=== PATIENT | male | born 1945 | race Caucasian/White ===

== ENCOUNTER 2016-06-22 16:09 | Emergency (ER) | payer MEDICARE ==
--- NOTE | 2016-06-22 16:34 | ERPHSYRPT ---
- History of Present Illness Time Seen by Provider: 06/22/16 16:29 Source: patient Exam Limitations: no limitations Patient Subjective Stated Complaint: pt states he has pain to left ribs from coughing. states he was seen at [facility] [place] on 06/21/16 and placed on a z-pack, prednisone and inhaler for bronchitis. Triage Nursing Assessment: pt pink, warm, dry. lung sounds clear and equal. no deformities noted to ribs. Physician History: Pt. with dry hacky cough most of time for past 7 days, intermittently bringing up some yellow sputum at times. States increase cough so much that he started having L chest wall pain. L chest pain sharp and worse with inspiration/cough. Seen at [place] and was given Zithromax, Prednisone and inhaler. Took [place] at noon with minimal relief. No CP otherwise, but noted some SOB sore throat and nasal congestion. No dizziness, weakness, fever, chills or systemic symptoms. Timing/Duration: day(s) (7), intermittent Cough Quality/Degree: dry cough Possible Cause: no prior episodes Modifying Factors: Improves With: albuterol inhaler (improves), deep breath ( worsens), exertion (worsens) Associated Symptoms: chest pain/soreness, cough, nasal congestion, nasal drainage, sore throat, No fever, No chills, No dizziness, No headache, No lightheadedness International travel in last 2 weeks: No Allergies/Adverse Reactions: adhesive tape Adverse Reaction (Mild, Verified 06/22/16 16:19) Blisters Home Medications: Aspirin 81 gm Chew [Baby Aspirin 81 mg Chew] 81 mg PO DAILY 11/09/14 [ History] Multivitamin [Multivitamins] 1 each PO DAILY 11/09/14 [History] Albuterol 8 gm Mdi Hfa [Ventolin Hfa MDI] 8 gm IH Q4HPRN PRN 06/22/16 [ History] Azithromycin [Zithromax] 250 mg PO UD 06/22/16 [History] Lisinopril 20 mg [Zestril 20 MG] 20 mg PO DAILY 06/22/16 [History] Methylprednisolone 4 mg [Medrol 4 mg] 4 mg PO UD 06/22/16 [History] Metoprolol Tartrate 25 mg [Lopressor 25MG Tab] 25 mg PO DAILY 06/22/16 [ History] Hx Tetanus, Diphtheria Vaccination/Date Given: Yes (up to date) Hx Influenza Vaccination/Date Given: Yes Hx Pneumococcal Vaccination/Date Given: Yes Immunizations Up to Date: Yes - Review of Systems Constitutional: No Fever, No Chills Eyes: No Symptoms Ears, Nose, & Throat: Nose Congestion, Nose Discharge, Throat Pain Respiratory: Cough, No Dyspnea, No Wheezing Cardiac: No Chest Pain, No Edema, No Syncope Abdominal/Gastrointestinal: No Abdominal Pain, No Nausea, No Vomiting, No Diarrhea Genitourinary Symptoms: No Dysuria Musculoskeletal: No Symptoms, No Back Pain, No Neck Pain Skin: No Rash Neurological: No Symptoms, No Dizziness, No Focal Weakness, No Sensory Changes Psychological: No Symptoms Endocrine: No Symptoms All Other Systems: Reviewed and Negative - Past Medical History Pertinent Past Medical History: Yes Neurological History: No Pertinent History ENT History: No Pertinent History Cardiac History: Hypertension Respiratory History: Other Endocrine Medical History: No Pertinent History Musculoskeletal History: Arthritis GI Medical History: Polyps, Other History: No Pertinent History Psycho-Social History: No Pertinent History Male Reproductive Disorders: No Pertinent History Other Medical History: SOB with exertion no DX. several lipomas right arm. diarrhea - Past Surgical History Past Surgical History: Yes Neuro Surgical History: No Pertinent History Cardiac: No Pertinent History Respiratory: No Pertinent History Gastrointestinal: Hernia Repair Genitourinary: No Pertinent History Musculoskeletal: Orthopedic Surgery Male Surgical History: No Pertinent History Other Surgical History: lumpectomy - Social History Smoking Status: Former smoker How long have you smoked: 20 years Exposure to second hand smoke: No Drug Use: none Patient Lives Alone: No - Nursing Vital Signs Nursing Vital Signs: Initial Vital Signs Temperature 97.4 F Temperature Source Oral Pulse Rate 98 Respiratory Rate 18 Blood Pressure [Right Arm] 136/81 Pain Intensity 5 - Physical Exam General Appearance: no apparent distress, alert Eye Exam: PERRL/EOMI, eyes nml inspection Ears, Nose, Throat Exam: normal ENT inspection, TMs normal, pharynx normal, moist mucous membranes Neck Exam: normal inspection, non-tender, supple, full range of motion Respiratory Exam: normal breath sounds, chest tenderness (L lat chest wall), lungs clear, No respiratory distress Cardiovascular Exam: regular rate/rhythm, normal heart sounds Gastrointestinal/Abdomen Exam: soft, No tenderness Back Exam: normal inspection, No CVA tenderness, No vertebral tenderness Extremity Exam: normal inspection, normal range of motion Neurologic Exam: alert, oriented x 3, cooperative, normal mood/affect, sensation nml, No motor deficits Skin Exam: normal color, warm, dry, No rash Lymphatic Exam: No adenopathy SpO2: 96 Oxygen Delivery: Room Air - Course Nursing assessment & vital signs reviewed: Yes EKG Interpreted by Me: RATE (96), NORMAL AXIS, NORMAL INTERVALS, NORMAL QRS, NORMAL ST-T, Other (Normal EKG) - Radiology Exams Chest X-ray Interpretation: Discussed w/ radiologist, Pneumonia (LLL, no ptx or fxs per radiologist) Ordered Tests: Active Orders 24 hr Category Date Time Status EKG-ER Only STAT Care 06/22/16 16:38 Active CHEST 2 VIEWS (PA AND LAT) Stat Exams 06/22/16 16:39 Taken RIBS UNILATERAL Stat Exams 06/22/16 16:40 Taken Medication Summary Discontinued Medications Generic Name Dose Route Start Last Admin Trade Name aNtanq PRN Reason Stop Dose Admin Meperidine HCl 50 mg 06/22/16 16:40 06/22/16 17:04 Demerol 50 Mg IM 06/22/16 16:41 50 mg STAT ONE Administration Meperidine HCl Confirm 06/22/16 17:03 Demerol 50 Mg Administered 06/22/16 17:04 Dose 50 mg .ROUTE .STK-MED ONE Meperidine HCl 50 mg 06/22/16 17:42 06/22/16 17:46 Demerol 50 Mg IM 06/22/16 17:43 50 mg STAT ONE Administration Meperidine HCl Confirm 06/22/16 17:44 Demerol 50 Mg Administered 06/22/16 17:45 Dose 50 mg .ROUTE .STK-MED ONE Promethazine HCl 25 mg 06/22/16 16:38 06/22/16 17:04 Phenergan 25 Mg Inj IM 06/22/16 16:39 25 mg STAT ONE Administration Promethazine HCl Confirm 06/22/16 17:03 Phenergan 25 Mg Inj Administered 06/22/16 17:04 Dose 25 mg .ROUTE .STK-MED ONE - Progress Progress: improved Air Movement: good Progress Note: 06/22/16 16:38 Pt. given Demerol and Phenergan for pain Blood Culture(s) Obtained: No Antibiotics given: No Counseled pt/family regarding: diagnosis, rad results - Departure Time of Disposition: 17:24 Departure Disposition: Home Clinical Impression: Pneumonia, Pleurisy Condition: Stable Critical Care Time: No Referrals: SEAN FISHER [Primary Care Provider] - Instructions: Pneumonia -- Adult, Pleurisy Additional Instructions: RX: Levaquin, Tussionex Return for worse pain, short of breath, fever or any problems. Prescriptions: Levofloxacin [Levaquin] 500 mg PO DAILY #10 tablet
[2016-06-22] MEDS ORDERED: Phenergan 25 MG INJ IM ONE (16:38)
[2016-06-22] MEDS ORDERED: DEMEROL 50 MG IM ONE ×2 (16:40→17:42)
[2016-06-22] MEDS ORDERED: DEMEROL 50 MG ONE ×2 (17:03→17:44)
[2016-06-22] MEDS ORDERED: Phenergan 25 MG INJ ONE (17:03)
[2016-06-22 18:18] VITALS: BP 146/70; PULSE 88; O2SAT 95
--- NOTE | 2016-06-23 08:37 | XRAY ---
Indication: Left-sided pain. No known injury. Comparison: None 2 views of the left ribs demonstrates mild osteopenia, acromioclavicular degenerative arthropathy, left hilar calcified nodes, and left lung base infiltrate/atelectasis. No other bony, articular, or soft tissue abnormalities.
--- NOTE | 2016-06-23 08:40 | XRAY ---
Indication: Cough. Left-sided pain. Comparison: December 19, 2010. PA/lateral chest less inflated today with new left base infiltrate/atelectasis. No consolidation or large effusion. Heart is not enlarged. Stable left infrahilar calcified node. Bony thorax intact again with mild osteopenia and degenerative changes. Impression: New left base infiltrate/atelectasis. Correlate clinically.
== END 2016-06-22 18:18 | disposition home or self-care (01) ==
LOC: ED 16:09
DX: J18.9 Pneumonia, unspecified organism (principal); R09.1 Pleurisy
CPT/HCPCS: 71020; 71100; 93005; 96372; 99284; J2175; J2550

== ENCOUNTER 2018-10-05 18:12 | Emergency (ER) | payer MEDICARE, OTHER ==
[2018-10-05] MEDS ORDERED: solu-MEDROL 125 MG IV ONE (18:44)
[2018-10-05] MEDS ORDERED: Pepcid 20 MG VIAL IV ONE ×2 (18:44→19:06)
[2018-10-05] MEDS ORDERED: BENADRYL 50 MG/ML IV ONE (18:44)
[2018-10-05] MEDS ORDERED: Sodium Chloride 0.9% 1000 ML 1,000 ML IV SCH (18:45)
--- NOTE | 2018-10-05 18:46 | ERPHSYRPT ---
- History of Present Illness Time Seen by Provider: 10/05/18 18:40 Exam Limitations: no limitations Patient Subjective Stated Complaint: pt reports he noticed a rash this morning approx 0900, states he is taking amoxicillin for a dry socket and has 2.5 days left of that course. denies any new exposure except for the antibiotic. pt states just [employer] he started to feel like his throat was getting "tight". Triage Nursing Assessment: pt is aox3, pt appears in no distress, pupils perrl, afebrile, resps easy and non labored, radial pulses strong and equal, cap refill < 3 seconds, pt skin pink warm dry. diffuse red rash noted to the face, neck, and abdomen. skin is intact. Physician History: pt is 73 year old male with onset rash today and scratchy throat but swallowing OK and not short of breath. no prior rxn to PCN - tooth is doing fine per pt. urticaric maculopap rash no other new meds beside pcn ab this week. Timing/Duration: today Quality: itchy Severity: moderate Location: face, torso, extremities, generalized Possible Causes: exposure to allergen Modifying Factors: Improves With: antihistamine Associated Symptoms: hives, sore throat Allergies/Adverse Reactions: adhesive tape Adverse Reaction (Mild, Verified 10/05/18 18:37) Blisters Home Medications: Aspirin 81 gm Chew [Baby Aspirin 81 mg Chew] 81 mg PO DAILY 11/09/14 [ History] Multivitamin [Multivitamins] 1 each PO DAILY 11/09/14 [History] Albuterol 8 gm Mdi Hfa [Ventolin Hfa MDI] 8 gm IH Q4HPRN PRN 06/22/16 [ History] Azithromycin [Zithromax] 250 mg PO UD 06/22/16 [History] Lisinopril 20 mg [Zestril 20 MG] 20 mg PO DAILY 06/22/16 [History] Methylprednisolone 4 mg [Medrol 4 mg] 4 mg PO UD 06/22/16 [History] Metoprolol Tartrate 25 mg [Lopressor 25MG Tab] 25 mg PO DAILY 06/22/16 [ History] Hx Tetanus, Diphtheria Vaccination/Date Given: Yes Hx Influenza Vaccination/Date Given: Yes Hx Pneumococcal Vaccination/Date Given: Yes Immunizations Up to Date: Yes - Review of Systems Constitutional: No Fever, No Chills Eyes: No Symptoms Ears, Nose, & Throat: Other (scratchy throat) Respiratory: No Cough, No Dyspnea Cardiac: No Chest Pain, No Edema, No Syncope Abdominal/Gastrointestinal: No Abdominal Pain, No Nausea, No Vomiting, No Diarrhea Genitourinary Symptoms: No Dysuria Musculoskeletal: No Back Pain, No Neck Pain Skin: No Rash Neurological: No Dizziness, No Focal Weakness, No Sensory Changes Psychological: No Symptoms Endocrine: No Symptoms All Other Systems: Reviewed and Negative - Past Medical History Pertinent Past Medical History: Yes Neurological History: No Pertinent History ENT History: No Pertinent History Cardiac History: Hypertension Respiratory History: Other Endocrine Medical History: No Pertinent History Musculoskeletal History: Arthritis GI Medical History: Polyps, Other History: No Pertinent History Psycho-Social History: No Pertinent History Male Reproductive Disorders: No Pertinent History Other Medical History: SOB with exertion no DX. several lipomas right arm. diarrhea - Past Surgical History Past Surgical History: Yes Neuro Surgical History: No Pertinent History Cardiac: No Pertinent History Respiratory: No Pertinent History Gastrointestinal: Hernia Repair Genitourinary: No Pertinent History Musculoskeletal: Orthopedic Surgery Male Surgical History: No Pertinent History Other Surgical History: lumpectomy - Social History Smoking Status: Former smoker How long have you smoked: 20 years Exposure to second hand smoke: No Drug Use: none Patient Lives Alone: No - Nursing Vital Signs Nursing Vital Signs: Initial Vital Signs Temperature 98.1 F 10/05/18 18:21 Pulse Rate 80 10/05/18 18:21 Respiratory Rate 18 10/05/18 18:21 Blood Pressure 152/69 10/05/18 18:21 O2 Sat by Pulse Oximetry 98 10/05/18 18:21 Pain Scale Pain Intensity 0 - Physical Exam General Appearance: no apparent distress, alert Eye Exam: PERRL/EOMI, eyes nml inspection Ears, Nose, Throat Exam: normal ENT inspection, moist mucous membranes, pharyngeal erythema Neck Exam: normal inspection, non-tender, supple, full range of motion Respiratory Exam: normal breath sounds, lungs clear, No respiratory distress, No rhonchi, No wheezing, No stridor Cardiovascular Exam: regular rate/rhythm, normal heart sounds Gastrointestinal/Abdomen Exam: soft, mass, No tenderness Back Exam: normal inspection, normal range of motion, No CVA tenderness, No vertebral tenderness Extremity Exam: normal inspection, normal range of motion Neurologic Exam: alert, oriented x 3, cooperative, normal mood/affect, sensation nml, No motor deficits Skin Exam: normal color, warm, dry, rash SpO2 Interpretation: normal SpO2: 98 - Course Nursing assessment & vital signs reviewed: Yes Ordered Tests: Active Orders 24 hr Category Date Time Status IV Insertion STAT Care 10/05/18 18:44 Active CBC W DIFF Stat Lab 10/05/18 18:44 Completed UA W/RFX UR CULTURE Stat Lab 10/05/18 19:04 Completed Medication Summary Generic Name Dose Route Start Last Admin Trade Name Freq PRN Reason Stop Dose Admin Sodium Chloride 1,000 mls @ 100 mls/hr 10/05/18 18:45 10/05/18 19:11 Sodium Chloride 0.9% 1000 Ml IV 11/04/18 18:44 100 mls/hr .Q10H MANI Administration Discontinued Medications Generic Name Dose Route Start Last Admin Trade Name Freq PRN Reason Stop Dose Admin Diphenhydramine HCl 50 mg 10/05/18 18:44 10/05/18 19:11 Benadryl 50 Mg/Ml IV 10/05/18 18:45 50 mg STAT ONE Administration Diphenhydramine HCl Confirm 10/05/18 19:06 Benadryl 50 Mg/Ml Administered 10/05/18 19:07 Dose 50 mg .ROUTE .STK-MED ONE Famotidine 20 mg 10/05/18 18:44 10/05/18 19:11 Pepcid 20 Mg Vial IV 10/05/18 18:45 20 mg STAT ONE Administration Famotidine Confirm 10/05/18 19:06 Pepcid 20 Mg Vial Administered 10/05/18 19:07 Dose 20 mg IV .STK-MED ONE Methylprednisolone Sodium Succinate 125 mg 10/05/18 18:44 10/05/18 19:11 Solu-Medrol 125 Mg IV 10/05/18 18:45 125 mg STAT ONE Administration Methylprednisolone Sodium Succinate Confirm 10/05/18 19:06 Solu-Medrol 125 Mg Administered 10/05/18 19:07 Dose 125 mg .ROUTE .STK-MED ONE Lab/Rad Data: Laboratory Result Diagrams 10/05/18 18:44 Laboratory Results 10/05/18 10/05/18 Range/Units 19:04 18:44 WBC 9.4 (4.0-10.5) K/mm3 RBC 4.96 (4.1-5.6) M/mm3 Hgb 15.4 (12.5-18.0) gm/dl Hct 46.7 (42-50) % MCV 94.2 (78-100) fl MCH 31.0 (26-32) pg MCHC 33.0 (32-36) g/dl RDW 14.2 H (11.5-14.0) % Plt Count 155 (150-450) K/mm3 MPV 11.1 H (6-9.5) fl Gran % 69.7 H (36.0-66.0) % Eos # (Auto) 0.43 (0-0.5) Absolute Lymphs (auto) 1.47 (1.0-4.6) Absolute Monos (auto) 0.92 (0.0-1.3) Lymphocytes % 15.6 L (24.0-44.0) % Monocytes % 9.8 (0.0-12.0) % Eosinophils % 4.6 (0.00-5.0) % Basophils % 0.3 (0.0-0.4) % Absolute Granulocytes 6.57 (1.4-6.9) Basophils # 0.03 (0-0.4) Urine Color YELLOW (YELLOW) Urine Appearance CLEAR (CLEAR) Urine pH 6.0 (5-6) Ur Specific Lane 1.016 (1.005-1.025) Urine Protein NEGATIVE (Negative) Urine Ketones NEGATIVE (NEGATIVE) Urine Blood NEGATIVE (0-5) Lorenzo/ul Urine Nitrite NEGATIVE (NEGATIVE) Urine Bilirubin NEGATIVE (NEGATIVE) Urine Urobilinogen NEGATIVE (0-1) mg/dL Ur Leukocyte Esterase NEGATIVE (NEGATIVE) Urine WBC (Auto) NONE (0-5) /HPF Urine RBC (Auto) NONE (0-2) /HPF U Epithel Cells (Auto) NONE (FEW) /HPF Urine Bacteria (Auto) NONE (NEGATIVE) /HPF Urine Mucus (Auto) SLIGHT (NEGATIVE) /HPF Urine Culture Reflexed NO (NO) Urine Glucose NEGATIVE (NEGATIVE) mg/dL - Progress Progress: improved, re-examined Progress Note: 10/05/18 20:57 symptoms are improving and now only rash remains and is receding - now follicles appear inflammed - discussed tx options with pt and after risk benefits discussion - he prefers just topical since there is an allergic component 10/05/18 20:59 there appears no angioedema component and he never had any swelling on the alana or face or mouth. 10/05/18 21:07 pulse ox 96 when readjusted - no shortness of breath. Counseled pt/family regarding: lab results, diagnosis, need for follow-up - Departure Departure Disposition: Home Clinical Impression: Folliculitis, skin allergy/reaction/rash, Rash of unknown etiology Condition: Good Critical Care Time: No Referrals: BARB CAMARGO [Primary Care Provider] - Instructions: Skin Rash (DC), Folliculitis (DC), Vasculitis (DC) Additional Instructions: we have not yet determined a precise cause for your rash - so followup with your Dr. is advised to rule out more serious conditions such as immune conditions or vascullitis. return meantime if any concerns or shortness of breath trouble swallowing or other concerns. Prescriptions: Methylprednisolone Packet [Medrol Dosepack] 4 mg PO UD #30 packet Mupirocin [Bactroban OINTMENT] 22 gm TP BID #1 tube
[2018-10-05 19:05] VITALS: PULSE 72
[2018-10-05] MEDS ORDERED: Sodium Chloride 0.9% 1000 ML 1,000 ML ONE (19:06)
[2018-10-05] MEDS ORDERED: BENADRYL 50 MG/ML ONE (19:06)
[2018-10-05] MEDS ORDERED: solu-MEDROL 125 MG ONE (19:06)
[2018-10-05 19:36] LABS: BASOPHIL % 0.3 % (0.0-0.4); Basophil (Absolute #) 0.03 (0-0.4); Eosinophil % 4.6 % (0.00-5.0); Eosinophil (Absolute #) 0.43 (0-0.5); Granulocyte Absolute (ANC) 6.57 (1.4-6.9); Granulocytes % 69.7 % (36.0-66.0); Hematocrit 46.7 % (42-50); Hemoglobin 15.4 gm/dl (12.5-18.0); Lymphocyte (Absolute #) 1.47 (1.0-4.6); Lymphocytes % 15.6 % (24.0-44.0); Mean Cell Volume 94.2 fl (78-100); Mean Platelet Volume 11.1 fl (6-9.5); Monocyte (Absolute #) 0.92 (0.0-1.3); Monocytes % 9.8 % (0.0-12.0); Platelet Count 155 K/mm3 (150-450); Red Blood Count 4.96 M/mm3 (4.1-5.6); Red Cell Distribution Width 14.2 % (11.5-14.0); White Blood Count 9.4 K/mm3 (4.0-10.5)
[2018-10-05 19:42] LABS: Appearance CLEAR (CLEAR); Bilirubin NEGATIVE (NEGATIVE); Blood NEGATIVE Ery/ul (0-5); Glucose NEGATIVE (NEGATIVE); Ketones NEGATIVE (NEGATIVE); Leukocyte Esterase NEGATIVE (NEGATIVE); Mucus SLIGHT /HPF (NEGATIVE); Nitrite NEGATIVE (NEGATIVE); Protein,Urine Dip NEGATIVE (Negative); Specific Gravity 1.016 (1.005-1.025); Urobilinogen NEGATIVE mg/dL (0-1)
[2018-10-05 20:34] VITALS: BP 135/62
[2018-10-05] MEDS ORDERED: Bactroban OINTMENT TP ONE (21:08)
[2018-10-05 21:16] VITALS: O2SAT 94
== END 2018-10-05 21:27 | disposition home or self-care (01) ==
LOC: ED 18:12
DX: L73.9 Follicular disorder, unspecified (principal); T78.40XA Allergy, unspecified, initial encounter; R21 Rash and other nonspecific skin eruption
CPT/HCPCS: 36000; 36415; 81001; 85025; 96360; 96361; 96374; 96375; 99284; J1200; J2930; A9270-GY

== ENCOUNTER 2018-10-11 10:10 | Emergency (ER) | payer MEDICARE, OTHER ==
[2018-10-11] MEDS ORDERED: DECADRON 10MG INJ. IM ONE (10:40)
[2018-10-11] MEDS ORDERED: DECADRON 10MG INJ. ONE (10:43)
--- NOTE | 2018-10-11 10:51 | ERPHSYRPT ---
- History of Present Illness Time Seen by Provider: 10/11/18 10:35 Source: patient Exam Limitations: no limitations Patient Subjective Stated Complaint: Hives scattered over entire body since Sunday, did come to the ER then and was given Medrol dose pack and Bactroban Oint Triage Nursing Assessment: Pt walks into the ER, hypertensive, denies difficulty breathing, denies difficulty swallowing, pulses normal, denies pain Physician History: patient was given Amoxil 2 weeks ago by his dentist for dental issues. Patient began having hives he does start his body on 10/05/2018, was seen in the emergency department, given medication and sent home. The patient began having improvement, and then the hives became worse on 10/10/2018. Patient denies any vision changes, redness of the eyes, epistaxis,respiratory distress, wheezing, swelling to his mouth, dizziness, reflexes, palpitations, melena, hematochezia, hematuria, or any pain anywhere. Timing/Duration: day(s) (6) Quality: itchy Severity: moderate Location: torso, extremities Possible Causes: medications, other (probable amoxicillin) Modifying Factors: Improves With: antihistamine (helped), other (steroids helped ) Associated Symptoms: hives, rash, No blisters, No change in skin texture, No difficulty breathing, No edema, No fever, No flushing, No headache, No jaundice , No malaise, No nasal congestion, No numbness, No pallor, No paresthesia, No petechiae, No sore throat, No swelling/mass/lumps, No tingling Allergies/Adverse Reactions: adhesive tape Adverse Reaction (Mild, Verified 10/11/18 10:31) Blisters Home Medications: Lisinopril 20 mg [Zestril 20 MG] 20 mg PO DAILY 06/22/16 [History] Metoprolol Tartrate 25 mg [Lopressor 25MG Tab] 25 mg PO BID 06/22/16 [ History] Allopurinol 300 mg [Zyloprim 300 mg] 300 mg PO DAILY 10/11/18 [History] Budesonide/Formoterol Fumarate [Symbicort 160-4.5 Mcg Inhaler] 2 inh PO BID 07/24 [History] Furosemide 20 mg [Lasix 20 mg] 20 mg PO DAILY 10/11/18 [History] Levothyroxine Sodium 50 mcg PO QAM 10/11/18 [History] Hx Tetanus, Diphtheria Vaccination/Date Given: Yes Hx Influenza Vaccination/Date Given: Yes Hx Pneumococcal Vaccination/Date Given: Yes - Review of Systems Constitutional: No Fever, No Chills Eyes: No Eye Pain, No Eye Redness, No Tearing, No Vision Changes, No Foreign Body Sensation Ears, Nose, & Throat: No Ear Discharge, No Nose Congestion, No Nose Discharge, No Sinus Drainage, No Epistaxis, No Throat Swelling, No Hoarse, No Painful Swallowing Respiratory: No Cough, No Dyspnea Cardiac: No Chest Pain, No Edema, No Syncope Abdominal/Gastrointestinal: No Abdominal Pain, No Nausea, No Vomiting, No Diarrhea Genitourinary Symptoms: No Dysuria Musculoskeletal: No Back Pain, No Neck Pain Skin: Pruritis, Rash Neurological: No Dizziness, No Focal Weakness, No Sensory Changes Psychological: No Symptoms Endocrine: No Symptoms Hematologic/Lymphatic: No Easy Bleeding, No Easy Bruising All Other Systems: Reviewed and Negative - Past Medical History Pertinent Past Medical History: Yes Neurological History: No Pertinent History ENT History: No Pertinent History Cardiac History: Hypertension Respiratory History: Other Endocrine Medical History: No Pertinent History Musculoskeletal History: Arthritis GI Medical History: Polyps, Other History: No Pertinent History Psycho-Social History: No Pertinent History Male Reproductive Disorders: No Pertinent History Other Medical History: SOB with exertion no DX. several lipomas right arm. diarrhea - Past Surgical History Past Surgical History: Yes Neuro Surgical History: No Pertinent History Cardiac: No Pertinent History Respiratory: No Pertinent History Gastrointestinal: Hernia Repair Genitourinary: No Pertinent History Musculoskeletal: Orthopedic Surgery Male Surgical History: No Pertinent History Other Surgical History: lumpectomy - Social History Smoking Status: Former smoker How long have you smoked: 20 years Exposure to second hand smoke: No Drug Use: none Patient Lives Alone: No - Nursing Vital Signs Nursing Vital Signs: Initial Vital Signs Temperature 98.0 F 10/11/18 10:18 Pulse Rate 69 10/11/18 10:18 Blood Pressure 149/69 10/11/18 10:18 O2 Sat by Pulse Oximetry 94 L 10/11/18 10:18 Pain Scale Pain Intensity 0 - Physical Exam General Appearance: no apparent distress, alert Eye Exam: PERRL/EOMI, eyes nml inspection Ears, Nose, Throat Exam: normal ENT inspection, pharynx normal, moist mucous membranes, No pharyngeal erythema, No tonsillar exudate Neck Exam: normal inspection, non-tender, supple, full range of motion, No meningismus, No limited range of motion, No lymphadenopathy Respiratory Exam: normal breath sounds, lungs clear, airway intact, No respiratory distress, No diminished breath sounds, No accessory muscle use, No crackles/rales, No rhonchi, No wheezing, No stridor Cardiovascular Exam: regular rate/rhythm, normal heart sounds, normal peripheral pulses, capillary refill <2 sec Gastrointestinal/Abdomen Exam: soft, mass, No tenderness Back Exam: normal inspection, normal range of motion, No CVA tenderness, No vertebral tenderness Extremity Exam: normal inspection, normal range of motion Neurologic Exam: alert, oriented x 3, cooperative, normal mood/affect, sensation nml, No motor deficits Skin Exam: normal color, warm, dry, rash, other (urticaria rash to chest, back, abdomen and upper extremities bilaterally), No jaundice, No cyanosis, No ecchymosis SpO2 Interpretation: normal SpO2: 95 O2 Delivery: Room Air Ordered Tests: Medication Summary Discontinued Medications Generic Name Dose Route Start Last Admin Trade Name Freq PRN Reason Stop Dose Admin Dexamethasone Sodium Phosphate 10 mg 10/11/18 10:40 10/11/18 10:44 Decadron 10mg Inj. IM 10/11/18 10:41 10 mg STAT ONE Administration Dexamethasone Sodium Phosphate Confirm 10/11/18 10:43 Decadron 10mg Inj. Administered 10/11/18 10:44 Dose 10 mg .ROUTE .ST-MED ONE - Progress Progress: unchanged Progress Note: 10/11/18 10:45 patient has a rash consistent with allergic reaction and urticarial response. Patient has no airway or hemodynamic involvement. Patient has had no mucosal involvement either. Patient will be given a dose of Decadron here in the emergency department as well as given another five-day course of prednisone as it seems as rash returned with a decrease of his other oral steroid use he comes 10/05/2018 visit in the emergency department. The patient also started on Claritin once daily and given an EpiPen as well to use as needed. Patient does not meet any inpatient criteria for admission and does not have any progression of his allergic response and understands to avoid amoxicillin most likely cause with his small list of medications that he takes. Patient to follow with his physician in 3 days to check response to therapy and have the need for further allergy testing or specialist referral. Counseled pt/family regarding: diagnosis, need for follow-up - Departure Departure Disposition: Home Clinical Impression: Urticaria, Hypertension Allergic drug reaction Qualifiers: Encounter type: initial encounter Qualified Code(s): T78.40XA - Allergy, unspecified, initial encounter Condition: Good Critical Care Time: No Referrals: BARB CAMARGO [Primary Care Provider] - Follow Up with PCP Instructions: Hives (DC), Adverse Drug Reactions, Adult (DC), High Blood Pressure (DC) Additional Instructions: return to the emergency department immediately if any worse rash, any shortness of breath, any dizziness, any new blood looking in the urine or bowels or any eye symptoms such as blurred vision, painful eyes, redness the eyes, sore throat , bloody nose, or any other concerning signs or symptoms that were not present at today's emergency room visit for immediate reevaluation in the emergency department. Prescriptions: EPINEPHrine [Epipen 0.3 MG] 0.3 mg IM DAILY PRN PRN #1 pack PRN Reason: Allergies Loratadine 10 mg [Claritin 10 mg] 10 mg PO DAILY #10 tablet Prednisone 20 mg [Deltasone 20 mg] 60 mg PO DAILY #15 tablet
[2018-10-11 11:21] VITALS: BP 148/64; PULSE 70; O2SAT 98
== END 2018-10-11 11:19 | disposition home or self-care (01) ==
LOC: ED 10:10
DX: L50.9 Urticaria, unspecified (principal); T78.40XA Allergy, unspecified, initial encounter; Z79.899 Other long term (current) drug therapy; I10 Essential (primary) hypertension
CPT/HCPCS: 96372; 99283; J1100

== ENCOUNTER 2019-02-24 08:49 | Day surgery (SDC) | payer MEDICARE, OTHER ==
--- NOTE | 2019-02-24 08:15 | HP ---
DATE OF SURGERY: 02/24/2019 HISTORY OF PRESENT ILLNESS: The patient is a 73 year-old with some loose stools once or twice a day. No bloody stools. No pain. History of polyps in the past. A brother with colon cancer, given his family history and history of polyps, he is in need of follow up colonoscopy. PAST MEDICAL HISTORY: Hypertension. Sleep apnea. Gout. Hypothyroidism. PAST SURGICAL HISTORY: Hernia repair in the past. Arm surgery in the past. MEDICATIONS: Allopurinol. Epinephrine PRN. Lasix. Levothyroxine. Lisinopril. Metoprolol. Symbicort. ALLERGIES: PENICILLIN. SENSITIVE TO SURGICAL TAPE. FAMILY HISTORY: Brother with colon cancer. Stomach cancer. Heart disease. Breast cancer. Hypertension. Diabetes. SOCIAL HISTORY: No smoking or alcohol abuse. REVIEW OF SYSTEMS: Fourteen systems reviewed. No chest pain or palpitations other systems negative or noncontributory as above and per preadmission questionnaire. PHYSICAL EXAMINATION: GENERAL: No acute distress. HEENT: Sclerae nonicteric. NECK: No JVD. CHEST: Equal excursion, nonlabored breathing. CVS: Regular rate and rhythm. ABDOMEN: Soft. No peritoneal signs. EXTREMITIES: No significant edema. NEURO: Alert, oriented, moving extremities symmetrically. No gross motor deficits noted. RECTAL: Deferred timed to endoscopy exam. IMPRESSION: Personal history of polyps, family history of colon cancer. He is in need of follow up screening colonoscopy. I feel he is a candidate. General risk of bleeding or infection, risk of bowel injury or perforation possibly requiring open procedure, risk of missed or nondiagnosis or incomplete exam possibly requiring barium enema, other studies or procedures, general risk of anesthesia or sedation, risk of bowel prep but not limited to. He understands and agrees to the planned procedure, will proceed with outpatient colonoscopy.
[2019-02-24] MEDS ORDERED: Lactated Ringers 1,000 ML IV SCH (10:00)
[2019-02-24] MEDS ORDERED: DIPRIVAN 200 MG/20 ML IV ONE ×2 (10:56→11:14)
[2019-02-24 12:47] VITALS: O2SAT 97
[2019-02-24 12:48] VITALS: BP 131/67; PULSE 66
--- NOTE | 2019-02-24 14:25 | OP ---
SURGERY DATE/TIME: 02/24/2019 1059 PREOPERATIVE DIAGNOSIS: History of polyps, family history of colon cancer, need for screening colonoscopy. POSTOPERATIVE DIAGNOSES: 1) Colon polyps. 2) Small internal hemorrhoids. 3) Fair bowel prep. 4) Pancolonic diverticulosis. PROCEDURES: 1) Colonoscopy to cecum. 2) Hot biopsy removal of small sigmoid colon polyp x1. 3) Hot biopsy removal of small raised lesion versus hyperplastic lesion rectosigmoid colon. SURGEON: Dr. Pavel Escalante. ANESTHESIA: MAC. ESTIMATED BLOOD LOSS: Minimal. INDICATIONS: As noted above. Risks and benefits explained in detail but not limited to and consent obtained. DESCRIPTION OF PROCEDURE AND FINDINGS: The patient is taken to endoscopy. MAC anesthesia introduced. After official time out and no disagreement with planned procedure, digital rectal exam did not reveal any rectal masses. He had some small internal and external hemorrhoids. Video colonoscope inserted and passed up the tortuous sigmoid, descending, transverse and ascending colon. With external pressure the scope was able to be passed around to the cecum. Appendiceal orifice and valve well visualized. Prep overall was fair. Scope is then carefully withdrawn. He had some pancolonic diverticulosis. Prep overall was fair with a little bit of liquidy stool suction irrigated as clear as possible. The scope is slowly and carefully withdrawn. In the sigmoid colon a small polyp removed with hot biopsy forceps with brief bursts of cautery. There was another two or three small raised lesions in the sigmoid and upper part of the rectum removed with hot biopsy forceps with brief bursts of cautery. Whether these are hyperplastic versus early polyps, hyperplasia of mucosa removed with hot biopsy forceps. Good hemostasis noted. Otherwise he had some small internal and external hemorrhoids. There were no signs of any large polyps, mass or obstructing lesions. The patient tolerated the procedure well. Findings discussed with the family out in the waiting area.
== END 2019-02-24 12:57 | disposition home or self-care (01) ==
LOC: SDC 08:49
PROVIDERS: ATTEND Surgery
DX: Z12.11 Encounter for screening for malignant neoplasm of colon (principal); K63.5 Polyp of colon; K64.8 Other hemorrhoids; E03.9 Hypothyroidism, unspecified; I10 Essential (primary) hypertension; K57.30 Diverticulosis of large intestine without perforation or abscess without bleeding; Z86.010 Personal history of colon polyps; Z80.0 Family history of malignant neoplasm of digestive organs; Z79.899 Other long term (current) drug therapy
CPT/HCPCS: 88305; 99100; J2704

== ENCOUNTER 2020-10-06 07:25 | Day surgery (SDC) | payer MEDICARE ==
[2020-10-06] MEDS ORDERED: Depo-Medrol 40 MG/ML IM ONE (07:26)
[2020-10-06] MEDS ORDERED: Sodium Chloride 0.9(Preservative Free) 10 ML IJ ONE (07:26)
[2020-10-06] MEDS ORDERED: DIPRIVAN 200 MG/20 ML IV ONE (09:41)
[2020-10-06] MEDS ORDERED: Lactated Ringers 1,000 ML IV ONE (10:01)
--- NOTE | 2020-10-06 10:52 | XRAY ---
Indication: Right L3-L5 transforaminal JONNY. Intraoperative fluoroscopy provided for 33 seconds. 2 digital spot images submitted for interpretation demonstrates posterior needle tips projecting over the expected right L3 and L4 nerve roots. Small amount of contrast injected for needle tip placement. Correlate with intraoperative findings/report.
--- NOTE | 2020-10-06 10:56 | XRAY ---
33 seconds fluoroscopy time in surgery for right L3-L5 transforaminal JONNY.
== END 2020-10-06 10:13 | disposition home or self-care (01) ==
LOC: SDC-PAIN 07:25
PROVIDERS: ATTEND Psychiatry & Neurology Pain Medicine
DX: M54.16 Radiculopathy, lumbar region (principal); Z79.899 Other long term (current) drug therapy
CPT/HCPCS: 64483; 64484; 72100; 77003; J1030; J2704; Q9966

== ENCOUNTER 2023-03-19 09:37 | Day surgery (SDC) | payer MEDICARE ==
--- NOTE | 2023-03-16 15:08 | HP ---
PROCEDURE DATE: 03/19/2023 HISTORY OF PRESENT ILLNESS: Patient is a 77 year-old with symptomatic enlarging subcutaneous nodule left shoulder and right forearm. Had some pain in right shoulder. Also, has had a history of back cyst draining. Desires excision of all of the above. PAST MEDICAL HISTORY: Hypertension, arthritis, sleep apnea, hypothyroidism, benign prostatic hypertrophy, and gout. CURRENT MEDICATIONS: Levothyroxine, allopurinol, furosemide, gabapentin, Lisinopril, metoprolol, tamsulosin, albuterol sulfate inhaler, diclofenac, vitamin C. ALLERGIES: PENICILLIN. PAST SURGICAL HISTORY: Had bilateral inguinal hernia repair, knee surgery, and arm surgery in the past. FAMILY HISTORY: Breast cancer, stomach cancer, colon cancer, heart disease. SOCIAL HISTORY: No smoking. Occasional alcohol. REVIEW OF SYSTEMS: 12 systems reviewed. No chest pain or palpitations. Other systems negative or noncontributory other than above and per preadmission questionnaire. He does use BIPAP. PHYSICAL EXAMINATION: BMI 37.3. Height 6'. GENERAL: No acute distress. HEENT: Sclerae nonicteric. EOM intact. NECK: No JVD. CHEST: Equal excursion. Nonlabored breathing. CVS: Regular rate and rhythm. ABDOMEN: Soft. EXTREMITIES: No cyanosis or edema. Left shoulder and left forearm with mass, questionable lipoma as well as one on his back. NEURO: Alert, moving extremities symmetrically. PSYCH: Appropriate mood and affect. IMPRESSION: 1. LARGE SYMPTOMATIC SUBCUTANEOUS MASSES OF THE SHOULDER AND FOREARM WELL HISTORY OF RUPTURED BACK CYST SITE. IN NEED OF EXCISION OF ALL OF THE ABOVE. Risks and benefits explained in detail, but not limited to, bleeding; infection; risk of hematoma or seroma formation; risks of aches, pains, burning, or numbness; risk of wound dehiscence possibly requiring packing; risk of anesthesia, deep venous thrombosis, pulmonary embolism, or pneumonia, but limited to. Will proceed with excision of all of the above and possible packing. Otherwise, continue medication for hypothyroidism, gout, arthritis, hypertension, and benign prostatic hypertrophy. Will proceed with excision as an outpatient of enlarging right forearm and left shoulder masses and ruptured back cyst sites.
[~2023-03-19 09:37] MED LIST: Lactated Ringers 1,000 ML IV ONE; Sensorcaine 0.25% 10 ML ONE
[2023-03-19] MEDS ORDERED: Lactated Ringers 1,000 ML IV ONE (09:51)
[2023-03-19] MEDS ORDERED: CLINDAMYCIN-D5W 900 MG/50 ML*** 900 MG/50 ML BAG IV ONE (09:51)
[2023-03-19 09:57] VITALS: RESP 18
[2023-03-19] MEDS: Lactated Ringers 1,000 ML IV SCH (09:57)
[2023-03-19] MEDS: CLINDAMYCIN-D5W 900 MG/50 ML*** 900 MG/50 ML BAG IV ONE (09:58)
[2023-03-19] MEDS ORDERED: Sensorcaine 0.25% 10 ML ONE (11:30)
[2023-03-19] MEDS ORDERED: BRIDION 200MG/2ML IV ONE (11:42)
[2023-03-19] MEDS ORDERED: SUBLIMAZE 100 MCG/2 ML ONE ×2 (11:42→13:09)
[2023-03-19] MEDS ORDERED: Zofran 4 MG/2 ML VIAL ONE (11:42)
[2023-03-19] MEDS ORDERED: DIPRIVAN 200 MG/20 ML IV ONE (11:42)
[2023-03-19] MEDS ORDERED: Decadron 4 MG INJ ONE (11:42)
[2023-03-19] MEDS ORDERED: Zemuron 100 MG/10 ML ONE ×2 (11:42→12:08)
[2023-03-19] MEDS ORDERED: Xylocaine-Mpf 2% 5 Ml Vial ONE (11:42)
[2023-03-19] MEDS ORDERED: TORAdol 30 mg Injection ONE (11:42)
[2023-03-19 14:31] VITALS: O2SAT 98
[2023-03-19 14:40] VITALS: BP 162/77; PULSE 65; TEMP 97.8
--- NOTE | 2023-03-20 11:06 | OP ---
SURGERY DATE/TIME: 03/19/2023 1144 PREOPERATIVE DIAGNOSIS: Enlarging symptomatic lipomatous density right forearm, left shoulder as well as history of ruptured cyst site on the back, in need of excision. POSTOPERATIVE DIAGNOSIS: Enlarging symptomatic lipomatous density left forearm, left shoulder as well as history of ruptured cyst site on the back, in need of excision. PROCEDURES: 1) Excisional biopsy of right forearm lipomatous density (approximately 6.5 cm). 2) Excisional biopsy of left shoulder lipomatous density (approximately 8 cm) with intermediate closure. 3) Three excisional biopsies of back lipoma (approximately 7 cm with margins) with intermediate closure. 4) Excisional biopsy of ruptured back cyst site approximately 3 cm with margins with intermediate closure. SURGEON: Nathan Escalante M.D. ANESTHESIA: General. ESTIMATED BLOOD LOSS: Minimal. INDICATIONS: As noted above. Risks and benefits explained in detail but not limited to, consent obtained. Sites had been marked in preoperative holding area. DESCRIPTION OF PROCEDURE AND FINDINGS: The patient is taken to the operating room. General anesthesia induced, placed in prone position, prepped and draped in usual sterile fashion. After official time out and no disagreement with planned procedure, going through an old scar on right forearm dissection carried down through circumferentially around this sticky, lipomatous lobulated density where he had prior surgery in this site before. Dissected off the underlying fascia underneath and passed off for pathology. It measured about 6.5 cm in size, lobulated. Good hemostasis noted. The wound is closed in intermediate fashion layered with deeper superficial subcu closed with 3-0 Vicryl, skin closed with 4-0 Vicryl. Steri-Strips and sterile dressings applied. 0.25% Marcaine local injected along the area. Attention is then turned to the left shoulder area. A diagonal incision made at the skin line over this, dissection carried down circumferentially around this quite sticky, lobulated and lipomatous density. It is about 8 cm in size carefully dissected off the underlying fascia and passed off. There was a small perforation controlled with 3-0 Vicryl suture ligature. Good hemostasis noted. Some pinpoint cautery to superficial scant ooze. Good hemostasis noted. The wound is irrigated out. It was then closed in intermediate fashion with deep and superficial subcu closed with 3-0 Vicryl. Skin closed with 4-0 Vicryl. Steri-Strips and sterile dressing applied. 0.25% Marcaine local injected along the area. Attention was then turned to the back lipoma. Transverse incision made. Dissection carried down circumferentially dissection carried around it. Again, the shoulder lipoma measured about 8 cm. The lipoma was lobulated and sticky that was dissected off the underlying fascia and measured about 7 cm in size, passed off for pathology. Good hemostasis noted. It was closed in layers with interrupted 3-0 Vicryl closing deep and superficial subcu. Skin closed with 4-0 Vicryl in interrupted fashion. Interrupted 3-0 Prolene was used to reinforce the area given the location on the back. Steri-Strips and sterile dressing applied. The patient tolerated the procedure well. 0.25% Marcaine local injected along the area. Attention is then turned to the other area that had been draining some fluid from. It seemed to be a ruptured cyst site. Dissection carried out around this and down to normal appearing subcutaneous tissue around it including a small sliver of skin over the top. It was about 3 cm in size and passed off for pathology. Good hemostasis noted. The wound is irrigated out. Deep and superficial subcu was closed with 3-0 Vicryl advancement flaps back to midline. Skin closed with 4-0 Vicryl running subcuticular fashion, some interrupted 3-0 Prolene used vertical mattress to reinforce the area. The patient tolerated the procedures well. There were no immediate complications. Findings were discussed with the family out in the waiting area.
== END 2023-03-19 14:55 | disposition home or self-care (01) ==
LOC: SDC 09:37
PROVIDERS: ATTEND Surgery
DX: D17.21 Benign lipomatous neoplasm of skin and subcutaneous tissue of right arm (principal); D17.22 Benign lipomatous neoplasm of skin and subcutaneous tissue of left arm; Z87.2 Personal history of diseases of the skin and subcutaneous tissue; Z80.3 Family history of malignant neoplasm of breast; Z80.8 Family history of malignant neoplasm of other organs or systems
CPT/HCPCS: J1100; J1885; J2405; J2704; J3010